=== PATIENT | male | born 1975 | race Caucasian/White ===

== ENCOUNTER → 2017-01-13 14:25 | Emergency (ER) | END | disposition left against medical advice (07) | LOC: UCEAST 14:25 | DX: R05 Cough (principal); Z53.21 Procedure and treatment not carried out due to patient leaving prior to being seen by health care provider ==

== ENCOUNTER 2019-10-11 10:00 | Emergency (ER) | payer OTHER ==
--- NOTE | 2019-10-11 10:39 | UC ---
Dental HPI - HPI Summary HPI Summary: 44 yo male presents with mouth sore. He tells me that yesterday he developed a painful red/white sore on the roof of his mouth. Took ibuprofen and pain resolved. Today pain is worse and area seems larger. He states he has a history of dental work and dental infections -- has not had any troubles with this in over a year and has no tooth pain. He tells me that he has a history of cold sores, but never had one like this. He has also had cold symptoms over the last 2 days. Denies fever, chills, sore throat, cough, rash. - History of Current Complaint Stated Complaint: SORE IN MOUTH Time Seen by Provider: 10/11/19 10:39 Hx Obtained From: Patient Onset/Duration: Sudden Onset Severity: Severe Pain Intensity: 10 Pain Scale Used: 0-10 Numeric - Allergies/Home Medications Allergies/Adverse Reactions: Allergies Allergy/AdvReac Type Severity Reaction Status Date / Time No Known Allergies Allergy Verified 10/11/19 10:42 Home Medications: Home Medications Venlafaxine EXT RELEASE CAP* [Effexor Xr CAP*] 1 tab PO DAILY 10/11/19 [History Confirmed 10/11/19] PMH/Surg Hx/FS Hx/Imm Hx - Additional Past Medical History Additional PMH: None - Surgical History Surgical History: None - Family History Known Family History: Positive: None - Social History Occupation: Employed Full-time Lives: With Family Alcohol Use: Occasionally Substance Use Type: None Smoking Status (MU): Never Smoked Tobacco Review of Systems All Other Systems Reviewed And Are Negative: No Constitutional: Positive: Negative Skin: Positive: Negative Eyes: Positive: Negative ENT: Positive: Other - Mouth sore Respiratory: Positive: Negative Cardiovascular: Positive: Negative Neurological: Positive: Negative Psychological: Positive: Negative Physical Exam - Summary Physical Exam Summary: GENERAL: NAD. WDWN. No pain distress. SKIN: No rashes, sores, lesions, or open wounds. HEENT: Head: AT/NC Eyes: EOM intact. Conjunctiva clear without inflammation or discharge. Ears: Hearing grossly normal. TMs intact, no bulging, erythema, or edema. Nose: Nasal mucosa pink and moist. NTTP maxillary and frontal sinus. Throat: Posterior oropharynx without exudates, erythema, or tonsillar enlargement. Uvula midline. Roof of soft palate with 1.0cm area of clustered white patches with erythematous bases that appear ulcerative. TTP. No dental abscess. NECK: Supple. Nontender. No lymphadenopathy. CHEST: CTAB. No r/r/w. No accessory muscle use. Breathing comfortably and in no distress. CV: RRR. Pulses intact. Cap refill <2seconds NEURO: Alert. PSYCH: Age appropriate behavior. Triage Information Reviewed: Yes Vital Signs: Vital Signs: Temp Pulse Resp BP Pulse Ox 98 F 81 18 108/65 100 10/11/19 10:40 10/11/19 10:40 10/11/19 10:40 10/11/19 10:40 10/11/19 10:40 Vital Signs Reviewed: Yes Dental Complaint Course/Dx - Course Course Of Treatment: Culture of the area obtained. Suspect herpes simplex infection and will treat him with valacyclovir and viscous lidocaine. He is concerned that this is infectious, therefore will place him on Augmentin and adjust his treatment as needed based on culture results. - Differential Dx/Diagnosis Provider Diagnosis: Mouth sore Discharge ED - Sign-Out/Discharge Documenting (check all that apply): Patient Departure All imaging exams completed and their final reports reviewed: No Studies - Discharge Plan Condition: Stable Disposition: HOME Prescriptions: Amoxicillin/Clavulanate TAB* [Augmentin TAB 875*] 875 mg PO BID #14 tab Lidocaine 2% VISCOUS* [Xylocaine 2% Viscous*] 15 ml SWISH SPIT Q6H #250 ml Valacyclovir HCl [Valtrex] 1,000 mg PO BID #14 tablet Patient Education Materials: Canker Sores (ED) Referrals: Della Ayers MD [Primary Care Provider] - Additional Instructions: If you develop a fever, shortness of breath, chest pain, new or worsening symptoms - please call your PCP or go to the ED immediately. The area in your mouth appears to be a cold sore/herpes, but given your dental history - this could also be a bacterial infection. You are being treated with VALACYCLOVIR for potential herpes. You are also being treated with AUGMENTIN in case this is bacterial. We have taken a sample of the area and should have results in 1-2 days and will call you with results and changes to medication as needed. - Billing Disposition and Condition Condition: STABLE Disposition: Home
[2019-10-11 10:42] VITALS: BP 108/65
[2019-10-12 15:39] LABS: Herpes Source MOUTH
[2019-10-12 21:25] LABS: Varicella Zoster Result Negative (Negative); Varicella Zoster Source MOUTH
== END 2019-10-11 11:09 | disposition home or self-care (01) ==
LOC: UCEAST 10:00
DX: K13.79 Other lesions of oral mucosa (principal)
CPT/HCPCS: 87070; 87205; 87529; 87798; 99212; G0463

== ENCOUNTER → 2019-10-12 08:11 | Emergency (ER) | payer OTHER ==
[~2019-10-12 08:11] MED LIST: Ibuprofen TAB* 600 MG PO ONE; Lidocaine 2% VISCOUS* 15 ML UDC PO ONE
--- NOTE | 2019-10-12 09:22 | UC ---
General HPI - HPI Summary HPI Summary: PATIENT PRESENTS WITH 2 DAYS OF A WORSENING SORE ON THE ROOF OF HIS MOUTH. IS ALSO COMPLAINING OF A TERRIBLE HEADACHE AND OVERALL MALAISE. WOKE UP THIS MORNING WITH LEFT SIDED FACIAL DROOPING. WAS SEEN HERE YESTERDAY COMPLAINING ABOUT HIS MOUTH SORE. WAS GIVEN VALTREX TO COVER FOR HERPETIC OUTBREAK WELL AUGMENTIN TO COVER FOR ANY BACTERIAL PROCESS. PATIENT DID NOT YET STARTED THESE MEDICATIONS. HE STATES HE DOES GET FREQUENT APHTHOUSULCERS BUT DENIES ANY HISTORY OF HERPES. THERE IS NO NECK PAIN. NO FEVER. NO RASH. HE DOES REPORT HISTORY OF POOR DENTITION HOWEVER DOES NOT HAVE ANY PAIN IN HIS TEETH AT PRESENT. HE TOOK A LEFTOVER HYDROCODONE WHICH DID NOT HELP SIGNIFICANTLY. - History of Current Complaint Chief Complaint: UCDentalProblem Stated Complaint: RECHECK SORE IN MOUTH FACE NUMB Time Seen by Provider: 10/12/19 08:25 Hx Obtained From: Patient, Family/Emergency Medicine Medical Director - Onset/Duration: Gradual Onset, Lasting Days, Still Present Timing: Constant Onset Severity: Moderate Current Severity: Severe Pain Intensity: 10 Associated Signs & Symptoms: Positive: Headache. Negative: Confusion, Decreased Responsiveness, Dizziness, Fever, Nausea, Palpitations, Recent Medication Changes, Syncope, SOB, Weakness - Allergy/Home Medications Allergies/Adverse Reactions: Allergies Allergy/AdvReac Type Severity Reaction Status Date / Time No Known Allergies Allergy Verified 10/12/19 08:21 Home Medications: Home Medications Hydrocodone/Acetaminophen [Hydrocodone-Acetamin 10-325 mg] 1 tab PO DAILY PRN [History Confirmed 10/12/19] PMH/Surg Hx/FS Hx/Imm Hx Previously Healthy: Yes - Surgical History Surgical History: None - Family History Known Family History: Positive: None - Social History Alcohol Use: Occasionally Substance Use Type: None Smoking Status (MU): Never Smoked Tobacco Review of Systems All Other Systems Reviewed And Are Negative: Yes Constitutional: Positive: Fatigue ENT: Positive: Other - SORE ON POSTERIOR HARD PALATE Respiratory: Positive: Negative Cardiovascular: Positive: Negative Gastrointestinal: Positive: Negative Musculoskeletal: Negative: Arthralgia, Myalgia Neurological: Positive: Headache. Negative: Paresthesia, Numbness Physical Exam Triage Information Reviewed: Yes Appearance: Well-Nourished, Pain Distress - MODERATE Vital Signs: Initial Vital Signs Temp 96.9 F 10/12/19 08:25 Pulse 77 10/12/19 08:25 Resp 16 10/12/19 08:25 BP 126/78 10/12/19 08:25 Pulse Ox 99 10/12/19 08:25 Vital Signs Reviewed: Yes Eyes: Positive: Conjunctiva Clear ENT: Positive: Hearing grossly normal, TMs normal, Other - 2CM WHITE BASED ULCER HARD PALATE WITH HALO OF ERYTHEMA Neck: Positive: Supple, Nontender, No Lymphadenopathy Respiratory Exam: Normal Cardiovascular Exam: Normal Abdomen Description: Positive: Soft Musculoskeletal: Positive: No Edema Neurological: Positive: Alert, Other: - LEFT SIDED FACIAL WEAKNESS. RAPID ALTERNATING MOVEMENTS INTACT. NEG PRONATOR DRIFT. NEG ROMBERG. 5/5 STRENGTH. HEEL TO BHATIA INTACT BILATERALLY. TANDEM GAIT INTACT. FINGER TO NOSE INTACT. Psychological: Positive: Age Appropriate Behavior Skin: Negative: Rashes Course/Dx - Course Course Of Treatment: PATIENT IS ABLE TO COMPLETELY CLOSE HIS LEFT EYE BUT TAKES MODERATE EFFORT. HOUSE-BRACKMANN GRADE III LEFT SIDED BELLS PALSY LIKELY VIRALLY MEDIATED. PT HAS A 2CM SORE ON THE ROOF OF HIS MOUTH - SUSPECT HERPES SIMPLEX OR ZOSTER. SWAB TAKEN YESTERDAY FOR HERPES. VARICELLA ADDED ON TODAY. RESULTS PENDING. ENCOURAGED PT TO FILL RX FOR VALTREX. WILL ADD PREDNISONE. DISCUSSED EYE PROTECTION. LABS DRAWN - CBC, CMP AND LYME. CT HEAD UNREMARKABLE. F/U NEURO. TO ER IF SX WORSEN. - Diagnoses Provider Diagnosis: Left-sided Waters's palsy Discharge ED - Sign-Out/Discharge Documenting (check all that apply): Patient Departure All imaging exams completed and their final reports reviewed: Yes - Discharge Plan Condition: Stable Disposition: HOME Prescriptions: predniSONE 20 mg TAB [Deltasone 20 MG TAB*] 60 mg PO DAILY #21 tab ValACYclovir (*) [Valtrex 1 GM(*)] 1 gm PO TID #21 tab Patient Education Materials: Waters Palsy (ED) Referrals: Sni Boston MD [Medical Doctor] - Della Ayers MD [Primary Care Provider] - 2 Weeks Additional Instructions: I SUSPECT YOUR WATERS'S PALSY IS VIRALLY MEDIATED. THE SWAB FROM THE SORE IN YOUR MOUTH HAS BEEN SENT FOR TESTING FOR BOTH HERPES SIMPLEX AND VARICELLA- ZOSTER. WE WILL CALL YOU WITH ANY ABNORMAL RESULTS. CT SCAN OF THE HEAD UNREMARKABLE. TAKE THE VALTREX 3 TIMES DAILY FOR 7 DAYS. PREDNISONE ONCE DAILY FOR 7 DAYS. VISCOUS LIDOCAINE TOPICALLY TO HELP WITH DISCOMFORT. LABS TODAY INCLUDE BLOOD COUNT, METABOLIC PANEL AND LYME SEROLOGY. What is Entriken palsy? Entriken palsy is a condition that causes one side of a persons face to become weak or droop. This can happen when one of the nerves that control the muscles in the face gets damaged or stops working. Damage to this nerve usually happens when the nerve becomes swollen or inflamed because of an infection with a virus. Most people with Entriken palsy recover completely. But some people have symptoms of Entriken palsy for the rest of their life. What are the symptoms of Entriken palsy? The symptoms can include: - An eyebrow that sags on one side - Drooping of one eye and one corner of the mouth - One eye that will not close completely Some people with Entriken palsy even lose the ability to taste on the front of their tongue. And some become sensitive to loud noises on the affected side. Is there a test for Entriken palsy? No. There is no test. But your doctor or nurse should be able to tell if you have it by learning about your symptoms and doing an exam. Even so, your doctor or nurse might order tests to check whether you have a different medical problem that could be confused with Entriken palsy. Should I see a doctor or nurse? Yes. If you have any symptoms of Waters's palsy , see your doctor or nurse right away. Effective treatments exist, but they work best if you start them soon after your symptoms start. How is Entriken palsy treated? Treatments include: - Medicines to reduce inflammation and swelling Many people with Waters's palsy get medicines called steroids. These are not the same steroids athletes take to build up muscle. These steroids help bring down the swelling that is often the cause of Entriken palsy. - Protection for your eyes Waters's palsy sometimes makes it impossible for you to close one of your eyes. If that happens, it's important that you keep your eye moist and protected. Otherwise your eye can get damaged. Your doctor might prescribe eyedrops or ointments to protect your eye. You should also wear glasses or goggles during the day and an eye patch at night. - Medicines that help fight viruses The swelling that causes Entriken palsy might be triggered by viruses. For this reason, some people get antiviral medicines, which help them fight infection. Will my face go back to normal? Probably. Most people with Entriken palsy start to get better within 3 weeks of when their symptoms start. But it can take them up to 6 months to get completely back to normal. Some people do not recover completely. They can have some weakness in their face that never goes away. IF YOUR SYMPTOMS ARE PERSISTENT FOLLOW-UP WITH NEUROLOGY GO TO THE ED WITHOUT FAIL IF YOU DEVELOP UNEQUAL PUPILS, VISUAL DISTURBANCE, GAIT INSTABILITY, SPEECH DIFFICULTY, NAUSEA/VOMITING, WORSENING HEADACHE, DIZZINESS, CONFUSION, WEAKNESS OR ANY OTHER CONCERNING SYMPTOMS. - Billing Disposition and Condition Condition: STABLE Disposition: Home
[2019-10-12 11:00] VITALS: BP 122/74
[2019-10-12 16:59] LABS: ABS Basophils 0.1 10^3/ul (0-0.2); ABS Eosinophils 0.2 10^3/ul (0-0.6); ABS Lymphocytes 1.2 10^3/ul (1.0-4.8); ABS Monocytes 0.6 10^3/ul (0-0.8); ABS Neutrophils 4.8 10^3/ul (1.5-7.7); Eosinophil % 3.4 %; Hematocrit 47 % (42-52); Hemoglobin 16.1 g/dL (14.0-18.0); Mean Corpuscular HGB Conc 34 g/dL (31-36); Mean Corpuscular Hemoglobin 33 pg (27-31); Mean Corpuscular Volume 97 fL (80-94); Mean Platelet Volume 7.6 fL (7.4-10.4); Platelet Count 258 10^3/uL (150-450); Red Blood Count 4.89 10^6 /uL (4.18-5.48); Red Cell Distribution Width 13 % (10-15); White Blood Count 6.9 10^3/uL (3.5-10.8)
[2019-10-12 17:08] LABS: Albumin 4.4 g/dL (3.2-5.2); Calcium 9.6 mg/dL (8.6-10.3); Potassium 4.5 mmol/L (3.5-5.0); Total Bilirubin 0.3 mg/dL (0.2-1.0)
[2019-10-12 17:14] LABS: Albumin/Globulin Ratio 1.8 (1-3); BUN/Creatinine Ratio 15.4 (8-20); EGFR African American 130.2 (>60); EGFR Non-African American 107.6 (>60); Globulin 2.5 g/dL (2-4); Total Protein 6.9 g/dL (6.4-8.9)
--- NOTE | 2019-10-13 13:03 | UC ---
- Progress Note Progress Note: SPOKE WITH PATIENT. ADVISED THAT LABS SO FAR ARE UNREMARKABLE. PATIENT IS EXTREMELY ANXIOUS ABOUT HIS LEFT-SIDED FACIAL PALSY. STATES HE CALLED NEUROLOGY TO SCHEDULE A FOLLOW-UP APPOINTMENT BUT THEY WOULD NOT SCHEDULE HIM WITHOUT RECEIVING HIS PROGRESS NOTE AND A REFERRAL. I CALLED NEUROLOGY MYSELF AND WAS INSTRUCTED TO FAX MY PROGRESS NOTE OVER TO THEIR OFFICE AT WHICH POINT THEY WOULD SCHEDULE HIM. FAX SENT. I WILL FOLLOW-UP LATER TODAY. Course/Dx - Diagnoses Provider Diagnoses: Left-sided Ritter's palsy Discharge ED - Sign-Out/Discharge Documenting (check all that apply): Post-Discharge Follow Up All imaging exams completed and their final reports reviewed: Yes - Discharge Plan Condition: Stable Disposition: HOME Prescriptions: predniSONE 20 mg TAB [Deltasone 20 MG TAB*] 60 mg PO DAILY #21 tab ValACYclovir (*) [Valtrex 1 GM(*)] 1 gm PO TID #21 tab Patient Education Materials: Ritter Palsy (ED) Referrals: Sin Boston MD [Medical Doctor] - Della Ayers MD [Primary Care Provider] - 2 Weeks Additional Instructions: I SUSPECT YOUR RITTER'S PALSY IS VIRALLY MEDIATED. THE SWAB FROM THE SORE IN YOUR MOUTH HAS BEEN SENT FOR TESTING FOR BOTH HERPES SIMPLEX AND VARICELLA- ZOSTER. WE WILL CALL YOU WITH ANY ABNORMAL RESULTS. CT SCAN OF THE HEAD UNREMARKABLE. TAKE THE VALTREX 3 TIMES DAILY FOR 7 DAYS. PREDNISONE ONCE DAILY FOR 7 DAYS. VISCOUS LIDOCAINE TOPICALLY TO HELP WITH DISCOMFORT. LABS TODAY INCLUDE BLOOD COUNT, METABOLIC PANEL AND LYME SEROLOGY. What is [place] palsy? [place] palsy is a condition that causes one side of a persons face to become weak or droop. This can happen when one of the nerves that control the muscles in the face gets damaged or stops working. Damage to this nerve usually happens when the nerve becomes swollen or inflamed because of an infection with a virus. Most people with [place] palsy recover completely. But some people have symptoms of [place] palsy for the rest of their life. What are the symptoms of [place] palsy? The symptoms can include: - An eyebrow that sags on one side - Drooping of one eye and one corner of the mouth - One eye that will not close completely Some people with [place] palsy even lose the ability to taste on the front of their tongue. And some become sensitive to loud noises on the affected side. Is there a test for [place] palsy? No. There is no test. But your doctor or nurse should be able to tell if you have it by learning about your symptoms and doing an exam. Even so, your doctor or nurse might order tests to check whether you have a different medical problem that could be confused with [place] palsy. Should I see a doctor or nurse? Yes. If you have any symptoms of Ritter's palsy , see your doctor or nurse right away. Effective treatments exist, but they work best if you start them soon after your symptoms start. How is [place] palsy treated? Treatments include: - Medicines to reduce inflammation and swelling Many people with Ritter's palsy get medicines called steroids. These are not the same steroids athletes take to build up muscle. These steroids help bring down the swelling that is often the cause of [place] palsy. - Protection for your eyes Ritter's palsy sometimes makes it impossible for you to close one of your eyes. If that happens, it's important that you keep your eye moist and protected. Otherwise your eye can get damaged. Your doctor might prescribe eyedrops or ointments to protect your eye. You should also wear glasses or goggles during the day and an eye patch at night. - Medicines that help fight viruses The swelling that causes [place] palsy might be triggered by viruses. For this reason, some people get antiviral medicines, which help them fight infection. Will my face go back to normal? Probably. Most people with [place] palsy start to get better within 3 weeks of when their symptoms start. But it can take them up to 6 months to get completely back to normal. Some people do not recover completely. They can have some weakness in their face that never goes away. IF YOUR SYMPTOMS ARE PERSISTENT FOLLOW-UP WITH NEUROLOGY GO TO THE ED WITHOUT FAIL IF YOU DEVELOP UNEQUAL PUPILS, VISUAL DISTURBANCE, GAIT INSTABILITY, SPEECH DIFFICULTY, NAUSEA/VOMITING, WORSENING HEADACHE, DIZZINESS, CONFUSION, WEAKNESS OR ANY OTHER CONCERNING SYMPTOMS. - Billing Disposition and Condition Condition: STABLE Disposition: Home
--- NOTE | 2019-10-13 15:54 | UC ---
- Progress Note Progress Note: SPOKE WITH NEUROLOGY AGAIN. THEY STATE THEY WILL LOOK FOR THE PATIENT'S PROGRESS NOTE AND WILL CALL HIM TOMORROW TO SCHEDULE AN APPOINTMENT. Course/Dx - Diagnoses Provider Diagnoses: Left-sided Ritter's palsy Discharge ED - Sign-Out/Discharge Documenting (check all that apply): Post-Discharge Follow Up All imaging exams completed and their final reports reviewed: Yes - Discharge Plan Condition: Stable Disposition: HOME Prescriptions: predniSONE 20 mg TAB [Deltasone 20 MG TAB*] 60 mg PO DAILY #21 tab ValACYclovir (*) [Valtrex 1 GM(*)] 1 gm PO TID #21 tab Patient Education Materials: Ritter Palsy (ED) Referrals: Sin Boston MD [Medical Doctor] - Della Ayers MD [Primary Care Provider] - 2 Weeks Additional Instructions: I SUSPECT YOUR RITTER'S PALSY IS VIRALLY MEDIATED. THE SWAB FROM THE SORE IN YOUR MOUTH HAS BEEN SENT FOR TESTING FOR BOTH HERPES SIMPLEX AND VARICELLA- ZOSTER. WE WILL CALL YOU WITH ANY ABNORMAL RESULTS. CT SCAN OF THE HEAD UNREMARKABLE. TAKE THE VALTREX 3 TIMES DAILY FOR 7 DAYS. PREDNISONE ONCE DAILY FOR 7 DAYS. VISCOUS LIDOCAINE TOPICALLY TO HELP WITH DISCOMFORT. LABS TODAY INCLUDE BLOOD COUNT, METABOLIC PANEL AND LYME SEROLOGY. What is [place] palsy? [place] palsy is a condition that causes one side of a persons face to become weak or droop. This can happen when one of the nerves that control the muscles in the face gets damaged or stops working. Damage to this nerve usually happens when the nerve becomes swollen or inflamed because of an infection with a virus. Most people with [place] palsy recover completely. But some people have symptoms of [place] palsy for the rest of their life. What are the symptoms of [place] palsy? The symptoms can include: - An eyebrow that sags on one side - Drooping of one eye and one corner of the mouth - One eye that will not close completely Some people with [place] palsy even lose the ability to taste on the front of their tongue. And some become sensitive to loud noises on the affected side. Is there a test for [place] palsy? No. There is no test. But your doctor or nurse should be able to tell if you have it by learning about your symptoms and doing an exam. Even so, your doctor or nurse might order tests to check whether you have a different medical problem that could be confused with [place] palsy. Should I see a doctor or nurse? Yes. If you have any symptoms of Ritter's palsy , see your doctor or nurse right away. Effective treatments exist, but they work best if you start them soon after your symptoms start. How is [place] palsy treated? Treatments include: - Medicines to reduce inflammation and swelling Many people with Ritter's palsy get medicines called steroids. These are not the same steroids athletes take to build up muscle. These steroids help bring down the swelling that is often the cause of [place] palsy. - Protection for your eyes Ritter's palsy sometimes makes it impossible for you to close one of your eyes. If that happens, it's important that you keep your eye moist and protected. Otherwise your eye can get damaged. Your doctor might prescribe eyedrops or ointments to protect your eye. You should also wear glasses or goggles during the day and an eye patch at night. - Medicines that help fight viruses The swelling that causes [place] palsy might be triggered by viruses. For this reason, some people get antiviral medicines, which help them fight infection. Will my face go back to normal? Probably. Most people with [place] palsy start to get better within 3 weeks of when their symptoms start. But it can take them up to 6 months to get completely back to normal. Some people do not recover completely. They can have some weakness in their face that never goes away. IF YOUR SYMPTOMS ARE PERSISTENT FOLLOW-UP WITH NEUROLOGY GO TO THE ED WITHOUT FAIL IF YOU DEVELOP UNEQUAL PUPILS, VISUAL DISTURBANCE, GAIT INSTABILITY, SPEECH DIFFICULTY, NAUSEA/VOMITING, WORSENING HEADACHE, DIZZINESS, CONFUSION, WEAKNESS OR ANY OTHER CONCERNING SYMPTOMS. - Billing Disposition and Condition Condition: STABLE Disposition: Home
--- NOTE | 2019-10-14 14:58 | UC ---
- Progress Note Progress Note: PROGRESS NOTE: WOUND CULTURE, FINAL: NORMAL ANG No change in treatment. Jian Cavanaugh MD Course/Dx - Diagnoses Provider Diagnoses: Left-sided Waters's palsy Discharge ED - Sign-Out/Discharge Documenting (check all that apply): Post-Discharge Follow Up All imaging exams completed and their final reports reviewed: Yes - Discharge Plan Condition: Stable Disposition: HOME Prescriptions: predniSONE 20 mg TAB [Deltasone 20 MG TAB*] 60 mg PO DAILY #21 tab ValACYclovir (*) [Valtrex 1 GM(*)] 1 gm PO TID #21 tab Patient Education Materials: Waters Palsy (ED) Referrals: Sin Boston MD [Medical Doctor] - Della Ayers MD [Primary Care Provider] - 2 Weeks Additional Instructions: I SUSPECT YOUR WATERS'S PALSY IS VIRALLY MEDIATED. THE SWAB FROM THE SORE IN YOUR MOUTH HAS BEEN SENT FOR TESTING FOR BOTH HERPES SIMPLEX AND VARICELLA- ZOSTER. WE WILL CALL YOU WITH ANY ABNORMAL RESULTS. CT SCAN OF THE HEAD UNREMARKABLE. TAKE THE VALTREX 3 TIMES DAILY FOR 7 DAYS. PREDNISONE ONCE DAILY FOR 7 DAYS. VISCOUS LIDOCAINE TOPICALLY TO HELP WITH DISCOMFORT. LABS TODAY INCLUDE BLOOD COUNT, METABOLIC PANEL AND LYME SEROLOGY. What is Castor palsy? Castor palsy is a condition that causes one side of a persons face to become weak or droop. This can happen when one of the nerves that control the muscles in the face gets damaged or stops working. Damage to this nerve usually happens when the nerve becomes swollen or inflamed because of an infection with a virus. Most people with Castor palsy recover completely. But some people have symptoms of Castor palsy for the rest of their life. What are the symptoms of Castor palsy? The symptoms can include: - An eyebrow that sags on one side - Drooping of one eye and one corner of the mouth - One eye that will not close completely Some people with Castor palsy even lose the ability to taste on the front of their tongue. And some become sensitive to loud noises on the affected side. Is there a test for Castor palsy? No. There is no test. But your doctor or nurse should be able to tell if you have it by learning about your symptoms and doing an exam. Even so, your doctor or nurse might order tests to check whether you have a different medical problem that could be confused with Castor palsy. Should I see a doctor or nurse? Yes. If you have any symptoms of Waters's palsy , see your doctor or nurse right away. Effective treatments exist, but they work best if you start them soon after your symptoms start. How is Castor palsy treated? Treatments include: - Medicines to reduce inflammation and swelling Many people with Waters's palsy get medicines called steroids. These are not the same steroids athletes take to build up muscle. These steroids help bring down the swelling that is often the cause of Castor palsy. - Protection for your eyes Waters's palsy sometimes makes it impossible for you to close one of your eyes. If that happens, it's important that you keep your eye moist and protected. Otherwise your eye can get damaged. Your doctor might prescribe eyedrops or ointments to protect your eye. You should also wear glasses or goggles during the day and an eye patch at night. - Medicines that help fight viruses The swelling that causes Castor palsy might be triggered by viruses. For this reason, some people get antiviral medicines, which help them fight infection. Will my face go back to normal? Probably. Most people with Castor palsy start to get better within 3 weeks of when their symptoms start. But it can take them up to 6 months to get completely back to normal. Some people do not recover completely. They can have some weakness in their face that never goes away. IF YOUR SYMPTOMS ARE PERSISTENT FOLLOW-UP WITH NEUROLOGY GO TO THE ED WITHOUT FAIL IF YOU DEVELOP UNEQUAL PUPILS, VISUAL DISTURBANCE, GAIT INSTABILITY, SPEECH DIFFICULTY, NAUSEA/VOMITING, WORSENING HEADACHE, DIZZINESS, CONFUSION, WEAKNESS OR ANY OTHER CONCERNING SYMPTOMS. - Billing Disposition and Condition Condition: STABLE Disposition: Home
== END | disposition home or self-care (01) ==
LOC: UCEAST 08:11
DX: G51.0 Bell's palsy (principal); R53.83 Other fatigue; R51 Headache
CPT/HCPCS: 36415; 70450; 80053; 85025; 86618; A9270-GY